=== PATIENT | female | born 1995 | race Caucasian/White ===

== ENCOUNTER 2023-05-31 03:28 | Emergency (ER) | payer OTHER, SELFPAY ==
[2023-05-31 03:40] VITALS: BP 140/89
[2023-05-31 04:19] VITALS: BMI 20.3
--- NOTE | 2023-05-31 04:21 | EDRN ---
Pt has had a congested nose since February for which she has been using Afrin daily. Pt notes Afrin only gives her about 1 hour of relief now and she is unable to sleep at nighttime. Pt has an appointment with her doctor on June 06 and was
told to stop taking Afrin - last dose yesterday. Pt has not taken any other medications for congested nose. Pt says she woke in a panic feeling she could not breathe so she was brought to the hospital for evaluation. Pt had congested nose earlier
last year for extended period of time and went to an team cdl driver and says she tested negative for everything. Symptom resolved on it's own. Pt unable to blow anything out of her nose. Pt does have a headache. No ear pain, sore throat,
fever/chills/cough.
--- NOTE | 2023-05-31 05:02 | ED.GENMED ---
History of Present Illness
General
Chief Complaint: Allergic Reaction
Source: patient
Exam Limitations: none
Time Seen by Provider: 05/31/23 04:51
Nursing documentation reviewed up to this point in time: agreed with
Travel History
Have you had any contact with someone who has COVID-19?: No
Do you have any symptoms of coronavirus? Fever > 100 degrees, chills, cough, shortness of breath, sore throat, loss of taste or smell, muscle aches, or headache?: No
History of Present Illness
History of Present Illness:
28 yo female presents to the emergency department complaining of severe congestion. This happened at 1:30 AM and she took her EpiPen without relief. She still feels a lot of congestion in her nose. Upon entry into the room she was sleeping
peacefully with her significant other in bed with her.
Past History
Past History
ED Past Medical History: Other (Ovarian cyst)
ED Past Surgical History: and Gynecological (Ovarian cyst removal)
Social History
Tobacco: Non-smoker
Alcohol: None
Drug: None
Living: with family
Review of Systems
Review of Systems
Allergies reviewed?: Yes
All Other Systems: Not applicable
Constitutional: Reports no symptoms
EENT: Reports runny nose and other (Congestion)
Respiratory: Reports trouble breathing
Cardiac: Reports no symptoms
ABD/GI: Reports no symptoms
: Reports no symptoms
Musculoskeletal: Reports no symptoms
Skin: Reports no symptoms
Neurological: Reports no symptoms
Endocrine: Reports no symptoms
Hematologic/Lymphatic: Reports no symptoms
Psychiatric: Reports no symptoms
Phy Exam
Physical Exam
Physical Exam:
Physical Exam
General: no apparent distress, not acutely ill
Neck: supple. no meningeal signs. normal posterior pharynx
Heart: s1/s2 regular rate and rhythm, no murmur. equal radial
pulses.
HEENT: Pupils equal round reactive to light, EOMI, nasal mucosa erythema
Lungs: no acute respiratory distress. clear bilaterally
Abdomen: normal bowel sounds. not tender. no CVAT
Neuro: alert and oriented. no focal neurological deficits cranial nerves II through XII intact
Skin: no rash
Psychiatric: well kept. interactive and cooperative
Extremities: no edema. no calf tenderness. negative homans. good distal pulses
Course
Orders/Labs/Results
Orders:
Orders
05/31/23 05:04
Doxycycline [Vibramycin] 100 mg PO NOW STA
Vital Signs
Initial and Last Documented VS:
Initial Vital Signs
Pulse Resp BP Pulse Ox
104 16 140/89 99
05/31/23 03:40 05/31/23 03:40 05/31/23 03:40 05/31/23 03:40
Last Documented Vital Signs
Temp Pulse Resp BP Pulse Ox
98.0 F 104 16 140/89 99
05/31/23 03:49 05/31/23 03:40 05/31/23 03:40 05/31/23 03:40 05/31/23 03:40
MDM/Problems Addressed
Differential Diagnosis Includes:
Pneumonia, allergic reaction
MDM/Problems Addressed:
28-year-old female with sinusitis. Intermittent chronic symptoms, worse tonight. Treat with doxycycline, Flonase.
*Pulse Oximetry
Patient hypoxic: no
*EKG
Interpreted by ED Provider?: NA
*Pigment Mixer Interpretation
Rate: Pigment Mixer- N/A
*Critical Care Note
Total Time (30-74mins, 75-104mins- exclusive of procedures): Not Applicable
Patient Management
Social determinants of health affecting care: Living situation
ED Attending Note
-
Portions of this chart may have been created with voice recognition software.� Occasional wrong word or��sound alike� substitutions may have occurred due to the inherent limitations of voice recognition software.
Discharge Plan
Departure
Patient Disposition: Home (Routine Discharge)
Date of Disposition: 05/31/23
Time of Disposition: 05:05
Patient with high blood pressure during this ER visit?: Yes
Condition: Good
Discharge Problem:
Sinusitis, acute
Instructions: Sinusitis, Adult (DC), BLOOD PRESSURE
Prescriptions:
New
doxycycline hyclate 100 mg capsule
100 mg PO BID Qty: 19 0RF
fluticasone propionate [Flonase Allergy Relief] 50 mcg/actuation spray,suspension
1 spray intranasal Q12H Qty: 16 0RF
Referrals:
NONE,* [Family Provider] -
Interventions
Interventions:
*Risk Screen - Suicide Last Done: 05/31/23 04:19
*General Assessment Last Done: 05/31/23 04:19
*Neglect/Abuse Screening Last Done: 05/31/23 04:19
ED- Fall Risk Assessment Last Done: 05/31/23 03:40
*ED COVID-19 Vaccine History Last Done: 05/31/23 03:40
ED- Pulmonary Assessment Last Done: 05/31/23 04:19
ED-Skin Assessment Last Done: 05/31/23 04:19
[2023-05-31] MEDS: VIBRAMYCIN 100 MG PO (05:07)
[2023-05-31 05:11] VITALS: BP 104/62
--- NOTE | 2023-05-31 05:18 | EDRN ---
Reviewed discharge instructions with pt - when talking about antibiotic, pt waved her hand over the paperwork and said 'It doesn't work, I don't notice any difference.' Explained to pt that abx do not work immediately and that she should notice a
difference in 1-2 days. Instructed pt to finish prescription even if feeling better. Reviewed flonase prescription, that it is also over the counter - pt waved her hand over the paperwork again 'That doesn't work. I've tried everything.' Tried
to discuss using humidifier in bedroom and pt again waved at this RN 'I've tried everything.' Pt not interested in reviewing discharge instructions. Pt says she has no questions.
== END 2023-05-31 05:19 | disposition home or self-care (01) ==
LOC: EMR 03:28
PROVIDERS: EMERGENCY PHYSICIAN Emergency Medicine
DX: J01.90 Acute sinusitis, unspecified (principal); R51.9 Headache, unspecified; R06.02 Shortness of breath; R03.0 Elevated blood-pressure reading, without diagnosis of hypertension
CPT/HCPCS: 99283

== ENCOUNTER 2023-07-12 11:06 | Emergency (ER) | payer OTHER, SELFPAY ==
[2023-07-12 11:15] VITALS: BP 110/59
--- NOTE | 2023-07-12 11:38 | ED.GENMED ---
History of Present Illness
General
Chief Complaint: Problems
Source: patient
Exam Limitations: none
Time Seen by Provider: 07/12/23 11:19
Travel History
Have you had any contact with someone who has COVID-19?: No
Do you have any symptoms of coronavirus? Fever > 100 degrees, chills, cough, shortness of breath, sore throat, loss of taste or smell, muscle aches, or headache?: Yes
Symptoms:: congestion
History of Present Illness
History of Present Illness:
28-year-old , 8 weeks presents with some vaginal bleeding. No cramping no fever no other complaints. Patient was high risk first due to being Rh-.
Past History
Past History
ED Past Medical History: Other (Ovarian cyst)
ED Past Surgical History: and Gynecological (Ovarian cyst removal)
Social History
Tobacco: Non-smoker
Alcohol: None
Drug: None
Living: with family
Review of Systems
Review of Systems
All Other Systems: Not applicable
Constitutional: Denies fever
ABD/GI: Denies abdominal pain
Phy Exam
Physical Exam
Physical Exam:
GENERAL: Alert and oriented in no apparent distress
EYE: Orbits normal.
NECK: Supple
CARDIAC: Regular rate and rhythm without any obvious murmurs.
LUNGS: Clear breath sounds,normal
ABDOMEN: Soft, without focal tenderness or distention
NEUROLOGICAL: Alert and oriented , grossly non-focal
SKIN: Warm and dry, no rash or lesion, no discoloration, skin intact.
MUSCULOSKELETAL: No edema,no deformity.Good color
PSYCH: Normal and appropriate interaction.
Course
Orders/Labs/Results
Orders:
Orders
07/12/23 11:16
1st Trimester US [US 1st Trimester] Urgent
Comment:
Reason For Exam: bleeding, 8 weeks preg
07/12/23 11:19
IV Insert/Care/Rem.- Treatment PRN
0.9% Sodium Chloride 1000 ml [Nss] 1,000 ml IV BOLUS
07/12/23 11:51
Blood Group&Type Urgent
Basic Metabolic Panel Urgent
Beta HCG Quantitative Urgent
Is this a screen?: No
Complete Blood Count/With Diff Urgent
07/12/23 15:02
Acetaminophen [Tylenol] 650 mg PO NOW STA
Abnormal Lab Results
07/12/23
11:51
WBC 12.3 H 10^3/uL
(4.8-10.8)
MCH 31.7 H pg
(27.0-31.0)
MPV 11.7 H fL
(7.4-10.4)
Abs Immat Gran (auto) 0.1 H 10^3/uL
(0-0.05)
Absolute Neuts (auto) 10.2 H 10^3/uL
(1.4-6.5)
Absolute Lymphs (auto) 0.8 L 10^3/uL
(1.2-3.4)
Absolute Monos (auto) 1.1 H 10^3/uL
(0.1-0.6)
Neutrophils % 82.7 H %
(42.2-75.2)
Lymphocytes % 6.8 L %
(20.5-51.1)
Sodium 134 L mmol/L
(135-145)
Glucose 106 H mg/dl
(70-99)
07/12/23 11:51
07/12/23 11:51
Vital Signs
Initial and Last Documented VS:
Initial Vital Signs
Temp Pulse Resp BP Pulse Ox
98.4 F 102 18 110/59 99
07/12/23 11:15 07/12/23 11:15 07/12/23 11:15 07/12/23 11:15 07/12/23 11:15
Last Documented Vital Signs
Temp Pulse Resp BP Pulse Ox
98.4 F 73 18 97/60 100
07/12/23 11:15 07/12/23 13:17 07/12/23 13:17 07/12/23 13:17 07/12/23 13:17
Information
Weeks gestation: Weeks: (8)
Location: Location: ([facility])
*Critical Care Note
Total Time (30-74mins, 75-104mins- exclusive of procedures): Not Applicable
Data Reviewed
Review of Other/Old Records Reveals: Testing
Update Note
Update Note:
Patient's quantitative hCG a few days ago was 142,000. Describing threatened miscarriage. Labs ordered. Quantitative hCG ordered. Ultrasound ordered. Started to discuss RhoGAM treatment.
Apparently patient is a positive it was a different antigen issue. Discussed with patient's primary [employer]. No reason for RhoGAM at this time. Vaginal exam shows very minimal bleeding at this time. Stable for charge to follow-up
ED Attending Note
-
Portions of this chart may have been created with voice recognition software.� Occasional wrong word or��sound alike� substitutions may have occurred due to the inherent limitations of voice recognition software.
Discharge Plan
Departure
Patient Disposition: Home (Routine Discharge)
Date of Disposition: 07/12/23
Time of Disposition: 15:43
Patient with high blood pressure during this ER visit?: No
Discharge Problem:
Threatened miscarriage, Incidental upper respiratory infection
Instructions: Threatened Miscarriage (DC)
Prescriptions:
No Action
doxycycline hyclate 100 mg capsule
100 mg PO BID Qty: 19 0RF
fluticasone propionate [Flonase Allergy Relief] 50 mcg/actuation spray,suspension
1 spray intranasal Q12H Qty: 16 0RF
Referrals:
Yanique Barlow CRNP [Family Provider] -
Activity Restrictions/Additional Instructions:
Call your custodial manager Friday for close follow-up
Interventions
Interventions:
*Risk Screen - Suicide Last Done: 07/12/23 11:42
*General Assessment Last Done: 07/12/23 11:42
*Neglect/Abuse Screening Last Done: 07/12/23 11:42
ED- Fall Risk Assessment Last Done: 07/12/23 11:55
*ED COVID-19 Vaccine History Last Done: 07/12/23 11:16
ED-Female Genitourinary Assessment Last Done: 07/12/23 11:42
[2023-07-12 12:00] VITALS: BP 90/71
[2023-07-12 12:00] LABS: % Basophils 0.3 % (0-2); % Eosinophils 1.1 % (0-6); % Immature Granulocytes 0.4 % (0-0.5); % Lymphocytes 6.8 % (20.5-51.1); % Monocytes 8.7 % (1.7-9.3); % Neutrophils 82.7 % (42.2-75.2); Absolute Eosinophils 0.1 10^3/uL (0-0.7); Absolute Immature Granulocytes 0.1 10^3/uL (0-0.05); Absolute Lymphocytes 0.8 10^3/uL (1.2-3.4); Absolute Monocytes 1.1 10^3/uL (0.1-0.6); Absolute Neutrophils 10.2 10^3/uL (1.4-6.5); Hematocrit 37.5 % (37.0-47.0); Hemoglobin 13.8 g/dL (12.0-16.0); Mean Corp Hgb Conc. 36.8 g/dL (33.0-37.0); Mean Corpuscular Hgb 31.7 pg (27.0-31.0); Mean Corpuscular Volume 86.2 fL (81.0-99.0); Mean Platelet Volume 11.7 fL (7.4-10.4); Nucleated Red Blood Cells % 0 %; Platelet Count 158 10^3/uL (130-400); Red Blood Cell Count 4.35 10^6/uL (4.20-5.40); Red Cell Dist. Width 12.3 % (11.5-14.5); White Blood Cell Count 12.3 10^3/uL (4.8-10.8)
[2023-07-12 12:16] LABS: Blood Urea Nitrogen 8 mg/dl (7-17); Calcium 9.5 mg/dl (8.4-10.2); Carbon Dioxide 24 mmol/L (22-30); Chloride 103 mmol/L (98-107); Estimated Creatinine Clearance > 125 ml/min; Glucose 106 mg/dl (70-99); Potassium 3.8 mmol/L (3.5-5.1); Sodium 134 mmol/L (135-145); eGFR > 60.00
[2023-07-12] MEDS: NSS 1000 IV (12:20)
[2023-07-12 13:17] VITALS: BP 97/60
[2023-07-12] MEDS: TYLENOL 650 MG PO (15:23)
[2023-07-12 15:30] VITALS: BP 88/71
== END 2023-07-12 16:28 | disposition home or self-care (01) ==
LOC: EMR 11:06
PROVIDERS: EMERGENCY PHYSICIAN Emergency Medicine; FAMILY PHYSICIAN Nurse Practitioner
DX: O20.0 Threatened abortion (principal); O99.511 Diseases of the respiratory system complicating pregnancy, first trimester; Z3A.08 8 weeks gestation of pregnancy; J06.9 Acute upper respiratory infection, unspecified; Z91.010 Allergy to peanuts
CPT/HCPCS: 99284; 96360; 76801; 80048; 84702; 85025; 86900; 86901